=== PATIENT | male | born 1950 | race African-American/Black ===

== ENCOUNTER 2021-10-21 10:10 | Inpatient (IN) | payer MEDICARE, OTHER ==
[~2021-10-21] VITALS: Ht 188 cm; Wt 106.1 kg
[2021-10-21 11:47] LABS: HEMATOCRIT. 37.8 % (42.0-52.0); HEMOGLOBIN. 12.3 g/dL (14.0-18.0); MEAN CORPUSCULAR VOLUME 73.6 fL (80.0-94.0); MEAN PLATELET VOLUME 7.7 fl (7.4-10.4); PLATELET 269 x1000/uL (130-400); RED BLOOD CELL COUNT 5.14 mill/uL (4.7-6.1); RED CELL DISTRIBUTION WIDTH 17.6 % (11.6-14.6)
[2021-10-21 12:02] LABS: CHLORIDE 100 mEq/L (98-107)
[2021-10-21 13:13] LABS: PLATELET ESTIMATE NORMAL
[2021-10-21] MEDS ORDERED: VANCOMYCIN 1G PREMIX 200 ML IV SCH (15:30)
[2021-10-21] MEDS ORDERED: PIPERACILLIN/TAZOBACTAM 3.375GM/50ML PREMIX IV ONE (15:30)
[2021-10-21] MEDS ORDERED: PIPERACILLIN/TAZ 3.375G PREMIX 50 ML IV NR (15:46)
[2021-10-21] MEDS ORDERED: [UNRECOGNIZED DRUG - REMARK] XX SCH (16:00)
[2021-10-21] MEDS ORDERED: VANCOMYCIN 1GM PMX (XELLIA) 200 ML IV NR (16:01)
[2021-10-21] MEDS ORDERED: DEXTROSE 50% WATER 50ML SYRINGE IV PRN (17:15)
[2021-10-21] MEDS ORDERED: MAGNESIUM/ALUMINUM HYDROXIDE/SIMETHICONE 30ML UDC PO PRN (17:15)
[2021-10-21] MEDS ORDERED: ZOLPIDEM TARTRATE 5MG TABLET PO PRN (17:15)
[2021-10-21] MEDS ORDERED: ACETAMINOPHEN 325MG TABLET PO PRN (17:15)
[2021-10-21] MEDS ORDERED: DIPHENHYDRAMINE 50MG/ML VIAL IV PRN (17:15)
[2021-10-21] MEDS ORDERED: CLONIDINE 0.1MG TABLET PO PRN (17:15)
[2021-10-21] MEDS ORDERED: ATORVASTATIN CALCIUM 40MG TABLET PO SCH (21:00)
[2021-10-21] MEDS: SODIUM CHLORIDE 0.9% INJ 3ML FLUSH IVF SCH (22:00)
[2021-10-21] MEDS: BLOOD SUGAR DIAGNOSTIC STRIP TEST SCH (22:12)
[2021-10-21] MEDS: INSULIN LISPRO 100 UNITS/ML SUBCUT SCH (22:13)
[2021-10-21] MEDS: VANCOMYCIN 1GM PMX (XELLIA) 200 ML IV SCH (23:12)
[2021-10-22] MEDS: PIPERACILLIN/TAZOBACTAM 3.375G in DEXT 5% WATER 50ML IV SCH ×4 (01:04→22:48)
[2021-10-22] MEDS: ATORVASTATIN CALCIUM 40MG TABLET PO SCH ×2 (02:10→22:44)
[2021-10-22] MEDS ORDERED: GLIMEPIRIDE 2MG TABLET PO SCH (06:30)
[2021-10-22 06:35] LABS: HEMOGLOBIN. 11.7 g/dL (14.0-18.0); MEAN CORPUSCULAR HEMOGLOBIN 24.5 pg (28.0-32.0); MEAN CORPUSCULAR VOLUME 73.2 fL (80.0-94.0); MEAN PLATELET VOLUME 7.2 fl (7.4-10.4); PLATELET 248 x1000/uL (130-400); RED BLOOD CELL COUNT 4.78 mill/uL (4.7-6.1); RED CELL DISTRIBUTION WIDTH 17.1 % (11.6-14.6)
[2021-10-22 06:41] LABS: CHLORIDE 101 mEq/L (98-107)
[2021-10-22] MEDS: SODIUM CHLORIDE 0.9% INJ 3ML FLUSH IVF SCH ×3 (06:46→22:49)
[2021-10-22 06:53] LABS: CREATINE KINASE 171 IU/L (39-308)
[2021-10-22 07:23] LABS: HEPATITIS B SURFACE ANTIGEN NEGATIVE
[2021-10-22 08:31] LABS: PLATELET ESTIMATE NORMAL
[2021-10-22] MEDS ORDERED: SODIUM CHLORIDE 0.45% 1,000 ML IV ONE (08:45)
[2021-10-22] MEDS ORDERED: SACU1TAB4 MT (10:09)
[2021-10-22] MEDS ORDERED: IVAB7.5T PO (10:09)
[2021-10-22] MEDS ORDERED: AMA1 PO (10:09)
[2021-10-22] MEDS ORDERED: ATOR-2 MT (10:09)
[2021-10-22] MEDS ORDERED: FERR325T6 MT (10:09)
[2021-10-22] MEDS ORDERED: ASPI-1497 PO (10:09)
[2021-10-22 10:10] VITALS: BP 128/74
[2021-10-22] MEDS ORDERED: EMPA10TA PO (10:10)
[2021-10-22 10:27] VITALS: BP 128/74
[2021-10-22 12:00] VITALS: BP 126/70
[2021-10-22] MEDS: BLOOD SUGAR DIAGNOSTIC STRIP TEST SCH ×3 (12:20→21:00)
[2021-10-22] MEDS: INSULIN LISPRO 100 UNITS/ML SUBCUT SCH ×3 (12:50→22:47)
[2021-10-22] MEDS ORDERED: LIDOCAINE HCL 1% 20ML VIAL (Pyxis) INJ ONE ×2 (13:03→13:06)
[2021-10-22] MEDS ORDERED: PROPOFOL 200MG/20ML VIAL IV ONE ×2 (13:04→13:59)
[2021-10-22] MEDS ORDERED: FENTANYL CITRATE/PF 50MCG/ML 2ML VIAL ONE (13:04)
[2021-10-22] MEDS ORDERED: BUPIVACAINE HCL/PF 0.5% (5MG/ML) 30ML ONE (13:06)
[2021-10-22] MEDS ORDERED: BACITRACIN 15GM TUBE TOP ONE (13:06)
[2021-10-22] MEDS ORDERED: POLYMYXIN B SULFATE 500000 UNITS/VIAL ONE (13:06)
[2021-10-22] MEDS ORDERED: VANCOMYCIN HCL 1 GM/VIAL ONE (13:13)
[2021-10-22] MEDS ORDERED: MIDAZOLAM HCL 2 MG/2 ML VIAL ONE (13:33)
[2021-10-22] MEDS: VANCOMYCIN 1GM PMX (XELLIA) 200 ML IV SCH ×2 (16:26→22:48)
[2021-10-22 16:30] VITALS: BP 132/75
[2021-10-22] MEDS ORDERED: TETANUS AND DIPHTHERIA TOX/PF 0.5ML SYR (ADULT) IM ONE (18:00)
[2021-10-22] MEDS ORDERED: LOSARTAN POTASSIUM 25 MG TABLET PO SCH (19:45)
[2021-10-22 20:00] VITALS: BP 143/78
[2021-10-22] MEDS ORDERED: CARVEDILOL 6.25 MG TABLET PO SCH (21:00)
[2021-10-22] MEDS ORDERED: NON FORMULARY PATIENT HOME MED PO SCH (23:45)
[2021-10-23] VITALS: BP 92/50
[2021-10-23] MEDS ORDERED: *PATIENT'S OWN MEDICATION STORAGE XX SCH (01:45)
[2021-10-23 04:00] VITALS: BP 97/47
[2021-10-23] MEDS: PIPERACILLIN/TAZOBACTAM 3.375G in DEXT 5% WATER 50ML IV SCH ×3 (06:34→21:42)
[2021-10-23] MEDS: SODIUM CHLORIDE 0.9% INJ 3ML FLUSH IVF SCH ×3 (06:34→21:42)
[2021-10-23] MEDS: BLOOD SUGAR DIAGNOSTIC STRIP TEST SCH ×4 (06:44→21:40)
[2021-10-23 07:41] LABS: HEMATOCRIT. 33.8 % (42.0-52.0); HEMOGLOBIN. 11.2 g/dL (14.0-18.0); MEAN CORPUSCULAR HEMOGLOBIN 24.2 pg (28.0-32.0); MEAN CORPUSCULAR VOLUME 72.9 fL (80.0-94.0); MEAN PLATELET VOLUME 7.7 fl (7.4-10.4); PLATELET 283 x1000/uL (130-400); RED BLOOD CELL COUNT 4.63 mill/uL (4.7-6.1); RED CELL DISTRIBUTION WIDTH 17.2 % (11.6-14.6)
[2021-10-23] MEDS: INSULIN LISPRO 100 UNITS/ML SUBCUT SCH ×4 (07:50→21:45)
[2021-10-23 08:00] VITALS: BP 112/57
[2021-10-23 08:13] LABS: CHLORIDE 103 mEq/L (98-107)
[2021-10-23] MEDS ORDERED: MISCELLANEOUS MEDICATION 1 EA PO SCH ×2 (09:00)
[2021-10-23] MEDS ORDERED: GLIMEPIRIDE 1MG TABLET PO SCH (09:00)
[2021-10-23] MEDS: GLIMEPIRIDE 2MG TABLET PO SCH (09:29)
[2021-10-23] MEDS: FERROUS SULFATE 325MG TABLET PO SCH (09:29)
[2021-10-23] MEDS: VANCOMYCIN 1GM PMX (XELLIA) 200 ML IV SCH ×2 (09:30→21:42)
[2021-10-23] MEDS: SILVER SULFADIAZINE 1% CREAM 25GM TOP SCH (09:30)
[2021-10-23] MEDS: CORLANOR 7.5 MG PO SCH (09:31)
[2021-10-23] MEDS: JARDIANCE 10MG TABLET PO SCH (09:32)
[2021-10-23] MEDS: ENTRESTO PO SCH ×2 (09:32→17:22)
[2021-10-23 12:00] VITALS: BP 129/68
[2021-10-23 13:09] LABS: PLATELET ESTIMATE NORMAL
[2021-10-23 16:00] VITALS: BP 134/68
[2021-10-23] MEDS: ASPIRIN 81MG EC TABLET PO SCH (17:21)
[2021-10-23] MEDS: ACETAMINOPHEN 325MG TABLET PO PRN (18:32)
[2021-10-23 20:00] VITALS: BP 119/57
[2021-10-23] MEDS: ATORVASTATIN CALCIUM 40MG TABLET PO SCH (21:41)
[2021-10-24] VITALS: BP 108/59
[2021-10-24 04:00] VITALS: BP 111/54
[2021-10-24] MEDS: SODIUM CHLORIDE 0.9% INJ 3ML FLUSH IVF SCH ×3 (06:21→20:39)
[2021-10-24] MEDS: PIPERACILLIN/TAZOBACTAM 3.375G in DEXT 5% WATER 50ML IV SCH ×2 (06:21→14:01)
[2021-10-24] MEDS: GLIMEPIRIDE 2MG TABLET PO SCH (06:21)
[2021-10-24] MEDS: BLOOD SUGAR DIAGNOSTIC STRIP TEST SCH ×4 (06:22→20:07)
[2021-10-24 06:59] LABS: BASOPHILS % 0.3 % (0.0-2.0); EOSINOPHILS % 2.4 % (0.0-5.0); HEMATOCRIT. 32.7 % (42.0-52.0); LYMPHOCYTES % 10.7 % (20.0-50.0); MEAN CORPUSCULAR HEMOGLOBIN 24.5 pg (28.0-32.0); MEAN PLATELET VOLUME 7.4 fl (7.4-10.4); MONOCYTES % 10.4 % (2.0-8.0); NEUTROPHILS % 76.2 % (40.0-76.0); PLATELET 298 x1000/uL (130-400); RED BLOOD CELL COUNT 4.49 mill/uL (4.7-6.1); RED CELL DISTRIBUTION WIDTH 17.4 % (11.6-14.6)
[2021-10-24 07:19] LABS: CHLORIDE 105 mEq/L (98-107)
[2021-10-24] MEDS: INSULIN LISPRO 100 UNITS/ML SUBCUT SCH ×4 (07:48→20:38)
[2021-10-24 08:00] VITALS: BP 122/64
[2021-10-24] MEDS: ASPIRIN 81MG EC TABLET PO SCH (08:14)
[2021-10-24] MEDS: FERROUS SULFATE 325MG TABLET PO SCH (08:14)
[2021-10-24] MEDS: ENTRESTO PO SCH ×2 (08:15→17:00)
[2021-10-24] MEDS: VANCOMYCIN 1GM PMX (XELLIA) 200 ML IV SCH (08:15)
[2021-10-24] MEDS: SILVER SULFADIAZINE 1% CREAM 25GM TOP SCH (08:16)
[2021-10-24] MEDS: CORLANOR 7.5 MG PO SCH (08:16)
[2021-10-24] MEDS: JARDIANCE 10MG TABLET PO SCH (08:16)
[2021-10-24] MEDS ORDERED: LIDOCAINE HCL 1% 10 MG/ML 10ML VIAL ONE (10:16)
[2021-10-24 12:00] VITALS: BP 120/60
[2021-10-24 16:00] VITALS: BP 138/73
[2021-10-24] MEDS: CEFAZOLIN 2,000 MG in DEXT 5% WATER 100 ML IV SCH ×2 (19:17→20:39)
[2021-10-24 20:00] VITALS: BP 127/73
[2021-10-24] MEDS: ATORVASTATIN CALCIUM 40MG TABLET PO SCH (20:38)
[2021-10-25] VITALS: BP 128/63
[2021-10-25 04:00] VITALS: BP 137/78
[2021-10-25] MEDS: GLIMEPIRIDE 2MG TABLET PO SCH (06:02)
[2021-10-25] MEDS: SODIUM CHLORIDE 0.9% INJ 3ML FLUSH IVF SCH ×3 (06:03→21:41)
[2021-10-25] MEDS: CEFAZOLIN 2,000 MG in DEXT 5% WATER 100 ML IV SCH ×3 (06:03→21:42)
[2021-10-25] MEDS: BLOOD SUGAR DIAGNOSTIC STRIP TEST SCH ×3 (06:21→21:43)
[2021-10-25] MEDS: INSULIN LISPRO 100 UNITS/ML SUBCUT SCH ×3 (07:25→21:45)
[2021-10-25 08:00] VITALS: BP 112/64
[2021-10-25] MEDS: ASPIRIN 81MG EC TABLET PO SCH ×2 (08:53→08:59)
[2021-10-25] MEDS: ENTRESTO PO SCH (08:53)
[2021-10-25] MEDS: FERROUS SULFATE 325MG TABLET PO SCH (08:53)
[2021-10-25] MEDS: CORLANOR 7.5 MG PO SCH (08:54)
[2021-10-25] MEDS: JARDIANCE 10MG TABLET PO SCH ×2 (08:55→18:43)
[2021-10-25] MEDS ORDERED: LIDOCAINE HCL 1% 20ML VIAL (Pyxis) INJ ONE ×2 (11:26→16:06)
[2021-10-25] MEDS ORDERED: BACITRACIN 15GM TUBE TOP ONE ×2 (11:28→16:10)
[2021-10-25] MEDS ORDERED: DEXAMETHASONE 4MG/ML 1ML VIAL ONE ×2 (11:28→15:58)
[2021-10-25] MEDS ORDERED: POLYMYXIN B SULFATE 500000 UNITS/VIAL ONE ×2 (11:28→14:50)
[2021-10-25] MEDS ORDERED: GENTAMICIN SULF 40MG/ML 2ML VIAL ONE (11:28)
[2021-10-25] MEDS ORDERED: BUPIVACAINE HCL/PF 0.5% (5MG/ML) 10ML ONE (11:29)
[2021-10-25 12:00] VITALS: BP 147/75
[2021-10-25] MEDS: ACETAMINOPHEN 325MG TABLET PO PRN (12:38)
[2021-10-25] MEDS ORDERED: MIDAZOLAM HCL 2 MG/2 ML VIAL ONE (15:37)
[2021-10-25] MEDS ORDERED: PROPOFOL 200MG/20ML VIAL IV ONE (15:38)
[2021-10-25] MEDS ORDERED: FENTANYL CITRATE/PF 50MCG/ML 2ML VIAL ONE (15:57)
[2021-10-25] MEDS ORDERED: ONDANSETRON HCL 4MG/2ML INJ ONE (15:58)
[2021-10-25] MEDS ORDERED: CEFAZOLIN SODIUM 1000MG/VIAL ONE ×2 (15:58→16:06)
[2021-10-25] MEDS ORDERED: LIDOCAINE HCL 2% JELLY 5ML ONE (16:06)
[2021-10-25] MEDS ORDERED: FENTANYL CITRATE/PF 50MCG/ML 2ML VIAL IV PRN (16:30)
[2021-10-25 18:36] VITALS: BP 140/82
[2021-10-25] MEDS: SILVER SULFADIAZINE 1% CREAM 25GM TOP SCH (18:43)
[2021-10-25 20:00] VITALS: BP 152/84
[2021-10-25] MEDS: ATORVASTATIN CALCIUM 40MG TABLET PO SCH (21:41)
[2021-10-26 00:01] VITALS: BP 137/76
[2021-10-26 04:00] VITALS: BP 159/89
[2021-10-26] MEDS: ONDANSETRON HCL 4MG/2ML INJ IV PRN ×2 (04:44→13:04)
[2021-10-26] MEDS: SODIUM CHLORIDE 0.9% INJ 3ML FLUSH IVF SCH ×3 (05:32→21:31)
[2021-10-26] MEDS: CEFAZOLIN 2,000 MG in DEXT 5% WATER 100 ML IV SCH ×3 (05:32→21:30)
[2021-10-26] MEDS: BLOOD SUGAR DIAGNOSTIC STRIP TEST SCH ×4 (06:10→21:30)
[2021-10-26] MEDS: INSULIN LISPRO 100 UNITS/ML SUBCUT SCH ×4 (06:28→21:32)
[2021-10-26 08:00] VITALS: BP 132/79
[2021-10-26 08:12] LABS: BASOPHILS % 0.1 % (0.0-2.0); HEMATOCRIT. 33.8 % (42.0-52.0); HEMOGLOBIN. 11.3 g/dL (14.0-18.0); LYMPHOCYTES % 10.3 % (20.0-50.0); MEAN CORPUSCULAR HEMOGLOBIN 24.2 pg (28.0-32.0); MEAN CORPUSCULAR VOLUME 72.3 fL (80.0-94.0); MEAN PLATELET VOLUME 7.6 fl (7.4-10.4); MONOCYTES % 6.3 % (2.0-8.0); NEUTROPHILS % 83.3 % (40.0-76.0); PLATELET 328 x1000/uL (130-400); RED BLOOD CELL COUNT 4.67 mill/uL (4.7-6.1); RED CELL DISTRIBUTION WIDTH 17.3 % (11.6-14.6)
[2021-10-26 08:40] LABS: CHLORIDE 102 mEq/L (98-107)
[2021-10-26] MEDS: ASPIRIN 81MG EC TABLET PO SCH (08:51)
[2021-10-26] MEDS: FERROUS SULFATE 325MG TABLET PO SCH (08:51)
[2021-10-26] MEDS: GLIMEPIRIDE 2MG TABLET PO SCH (08:51)
[2021-10-26] MEDS: CORLANOR 7.5 MG PO SCH (08:52)
[2021-10-26] MEDS: ENTRESTO PO SCH ×3 (08:52→18:15)
[2021-10-26] MEDS: SILVER SULFADIAZINE 1% CREAM 25GM TOP SCH (08:52)
[2021-10-26] MEDS ORDERED: IOHEXOL-350 100 ML BOTTLE ONE (10:24)
[2021-10-26 11:47] VITALS: BP 154/89
[2021-10-26] MEDS: ACETAMINOPHEN 325MG TABLET PO PRN (13:04)
[2021-10-26 16:00] VITALS: BP 129/76
[2021-10-26] MEDS: METOCLOPRAMIDE HCL 10MG/2ML VIAL IV SCH ×2 (19:58→23:31)
[2021-10-26 20:00] VITALS: BP 127/78
[2021-10-26] MEDS ORDERED: FAMOTIDINE 20MG/2ML VIAL IV SCH (21:00)
[2021-10-26] MEDS: ATORVASTATIN CALCIUM 40MG TABLET PO SCH (21:31)
[2021-10-27] VITALS: BP 141/86
[2021-10-27 03:43] VITALS: BP 125/76
[2021-10-27] MEDS: CEFAZOLIN 2,000 MG in DEXT 5% WATER 100 ML IV SCH ×3 (05:29→21:49)
[2021-10-27] MEDS: SODIUM CHLORIDE 0.9% INJ 3ML FLUSH IVF SCH ×3 (05:30→21:49)
[2021-10-27] MEDS: METOCLOPRAMIDE HCL 10MG/2ML VIAL IV SCH ×4 (05:30→21:49)
[2021-10-27] MEDS: BLOOD SUGAR DIAGNOSTIC STRIP TEST SCH ×4 (06:27→20:53)
[2021-10-27] MEDS: GLIMEPIRIDE 2MG TABLET PO SCH (06:27)
[2021-10-27 08:00] VITALS: BP 148/85
[2021-10-27] MEDS: ASPIRIN 81MG EC TABLET PO SCH (08:16)
[2021-10-27] MEDS: FERROUS SULFATE 325MG TABLET PO SCH (08:16)
[2021-10-27] MEDS: ENTRESTO PO SCH ×2 (08:17→16:33)
[2021-10-27] MEDS: JARDIANCE 10MG TABLET PO SCH (08:17)
[2021-10-27] MEDS: SILVER SULFADIAZINE 1% CREAM 25GM TOP SCH (08:17)
[2021-10-27] MEDS: CORLANOR 7.5 MG PO SCH (08:17)
[2021-10-27] MEDS: INSULIN LISPRO 100 UNITS/ML SUBCUT SCH ×4 (08:56→23:33)
[2021-10-27 12:00] VITALS: BP 146/83
[2021-10-27] MEDS: ONDANSETRON HCL 4MG/2ML INJ IV PRN ×2 (12:48→16:32)
[2021-10-27 16:00] VITALS: BP 172/96
[2021-10-27 20:00] VITALS: BP 137/80
[2021-10-27] MEDS: FAMOTIDINE 20MG TABLET PO SCH (21:48)
[2021-10-27] MEDS: ATORVASTATIN CALCIUM 40MG TABLET PO SCH (21:48)
[2021-10-28] VITALS: BP 132/81
[2021-10-28 04:00] VITALS: BP 130/78
[2021-10-28] MEDS: CEFAZOLIN 2,000 MG in DEXT 5% WATER 100 ML IV SCH ×3 (06:30→21:37)
[2021-10-28] MEDS: METOCLOPRAMIDE HCL 10MG/2ML VIAL IV SCH ×4 (06:30→21:37)
[2021-10-28] MEDS: SODIUM CHLORIDE 0.9% INJ 3ML FLUSH IVF SCH ×3 (06:31→21:53)
[2021-10-28] MEDS: GLIMEPIRIDE 2MG TABLET PO SCH (06:31)
[2021-10-28] MEDS: BLOOD SUGAR DIAGNOSTIC STRIP TEST SCH ×4 (06:31→21:08)
[2021-10-28 07:58] VITALS: BP 141/93
[2021-10-28] MEDS: ENTRESTO PO SCH ×2 (09:20→17:08)
[2021-10-28] MEDS: CORLANOR 7.5 MG PO SCH (09:20)
[2021-10-28] MEDS: FERROUS SULFATE 325MG TABLET PO SCH (09:21)
[2021-10-28] MEDS: ASPIRIN 81MG EC TABLET PO SCH (09:21)
[2021-10-28] MEDS: SILVER SULFADIAZINE 1% CREAM 25GM TOP SCH (09:22)
[2021-10-28] MEDS: INSULIN LISPRO 100 UNITS/ML SUBCUT SCH ×4 (09:23→21:53)
[2021-10-28] MEDS: JARDIANCE 10MG TABLET PO SCH (09:25)
[2021-10-28 12:30] VITALS: BP 141/79
[2021-10-28] MEDS: METOPROLOL TARTRATE 25MG TABLET PO SCH ×2 (12:37→21:37)
[2021-10-28 16:17] VITALS: BP 130/75
[2021-10-28 20:00] VITALS: BP 135/71
[2021-10-28] MEDS: FAMOTIDINE 20MG TABLET PO SCH (21:37)
[2021-10-28] MEDS: ATORVASTATIN CALCIUM 40MG TABLET PO SCH (21:37)
[2021-10-29] VITALS: BP 108/57
[2021-10-29 04:00] VITALS: BP 133/75
[2021-10-29] MEDS: SODIUM CHLORIDE 0.9% INJ 3ML FLUSH IVF SCH ×3 (06:34→22:01)
[2021-10-29] MEDS: METOCLOPRAMIDE HCL 10MG/2ML VIAL IV SCH ×4 (06:34→22:20)
[2021-10-29] MEDS: GLIMEPIRIDE 2MG TABLET PO SCH (06:34)
[2021-10-29] MEDS: BLOOD SUGAR DIAGNOSTIC STRIP TEST SCH ×4 (06:34→20:59)
[2021-10-29] MEDS: CEFAZOLIN 2,000 MG in DEXT 5% WATER 100 ML IV SCH ×3 (06:34→22:01)
[2021-10-29 07:43] VITALS: BP 138/81
[2021-10-29] MEDS: INSULIN LISPRO 100 UNITS/ML SUBCUT SCH ×4 (08:49→22:20)
[2021-10-29] MEDS: FERROUS SULFATE 325MG TABLET PO SCH (08:50)
[2021-10-29] MEDS: ASPIRIN 81MG EC TABLET PO SCH (08:50)
[2021-10-29] MEDS: METOPROLOL TARTRATE 25MG TABLET PO SCH ×2 (08:50→22:02)
[2021-10-29] MEDS: CORLANOR 7.5 MG PO SCH (08:51)
[2021-10-29] MEDS: ENTRESTO PO SCH ×2 (08:51→16:47)
[2021-10-29] MEDS: JARDIANCE 10MG TABLET PO SCH (08:51)
[2021-10-29 09:52] LABS: BASOPHILS % 0.5 % (0.0-2.0); EOSINOPHILS % 4.1 % (0.0-5.0); HEMATOCRIT. 32.6 % (42.0-52.0); HEMOGLOBIN. 10.8 g/dL (14.0-18.0); LYMPHOCYTES % 13.6 % (20.0-50.0); MEAN CORPUSCULAR HEMOGLOBIN 24.1 pg (28.0-32.0); MEAN CORPUSCULAR VOLUME 72.8 fL (80.0-94.0); MONOCYTES % 8.7 % (2.0-8.0); NEUTROPHILS % 73.1 % (40.0-76.0); RED BLOOD CELL COUNT 4.49 mill/uL (4.7-6.1)
[2021-10-29 09:57] LABS: CHLORIDE 109 mEq/L (98-107)
[2021-10-29 10:21] LABS: PLATELET 169 x1000/uL (130-400)
[2021-10-29 12:00] VITALS: BP 146/74
[2021-10-29] MEDS: SILVER SULFADIAZINE 1% CREAM 25GM TOP SCH (12:25)
[2021-10-29] MEDS ORDERED: MAGNESIUM 1 G PREMIX 100 ML IV NR (15:00)
[2021-10-29 16:00] VITALS: BP 115/59
[2021-10-29 20:00] VITALS: BP 126/74
[2021-10-29] MEDS: FAMOTIDINE 20MG TABLET PO SCH (22:01)
[2021-10-29] MEDS: ATORVASTATIN CALCIUM 40MG TABLET PO SCH (22:02)
[2021-10-30] VITALS: BP 120/68
[2021-10-30 04:00] VITALS: BP 129/71
[2021-10-30] MEDS: SODIUM CHLORIDE 0.9% INJ 3ML FLUSH IVF SCH ×2 (06:00→14:50)
[2021-10-30] MEDS: CEFAZOLIN 2,000 MG in DEXT 5% WATER 100 ML IV SCH ×2 (06:00→14:50)
[2021-10-30] MEDS: METOCLOPRAMIDE HCL 10MG/2ML VIAL IV SCH ×2 (06:00→12:28)
[2021-10-30] MEDS: BLOOD SUGAR DIAGNOSTIC STRIP TEST SCH ×2 (07:18→12:29)
[2021-10-30 07:44] VITALS: BP 126/79
[2021-10-30 07:57] LABS: HEMATOCRIT. 30.7 % (42.0-52.0); HEMOGLOBIN. 10.2 g/dL (14.0-18.0); MEAN CORPUSCULAR HEMOGLOBIN 24.1 pg (28.0-32.0); MEAN CORPUSCULAR VOLUME 72.8 fL (80.0-94.0); RED BLOOD CELL COUNT 4.21 mill/uL (4.7-6.1); RED CELL DISTRIBUTION WIDTH 17.1 % (11.6-14.6)
[2021-10-30 08:02] LABS: CHLORIDE 107 mEq/L (98-107)
[2021-10-30 08:24] LABS: PLATELET 178 x1000/uL (130-400)
[2021-10-30 08:26] LABS: PLATELET ESTIMATE NORMAL
[2021-10-30] MEDS: INSULIN LISPRO 100 UNITS/ML SUBCUT SCH ×2 (08:45→12:43)
[2021-10-30] MEDS: ENTRESTO PO SCH ×2 (08:46→17:00)
[2021-10-30] MEDS: JARDIANCE 10MG TABLET PO SCH (08:46)
[2021-10-30] MEDS: CORLANOR 7.5 MG PO SCH (08:47)
[2021-10-30] MEDS: FERROUS SULFATE 325MG TABLET PO SCH (08:47)
[2021-10-30] MEDS: ASPIRIN 81MG EC TABLET PO SCH (08:48)
[2021-10-30] MEDS: GLIMEPIRIDE 2MG TABLET PO SCH (08:48)
[2021-10-30] MEDS: METOPROLOL TARTRATE 25MG TABLET PO SCH (08:48)
[2021-10-30] MEDS: SILVER SULFADIAZINE 1% CREAM 25GM TOP SCH (11:44)
[2021-10-30 12:00] VITALS: BP 137/83
[2021-10-30 12:12] VITALS: BP 137/83
[2021-10-30 15:57] VITALS: BP 131/74
[2021-10-30] MEDS ORDERED: METOPROLOL TARTRATE 50MG TABLET PO SCH (21:00)
== END 2021-10-30 18:01 | disposition home health service (06) | DRG 853 ==
LOC: ER 11:10 → MICUSO 16:14 → EDBEDREQTM 16:17 → EDBEDREQ 16:17 → 6WST 10-22 09:58
PROVIDERS: ADMIT Internal Medicine; ATTEND Internal Medicine
PROC: 0KBV0ZZ Excision of Right Foot Muscle, Open Approach (ICD-10-PCS; 2021-10-22)
PROC: 02HV33Z Insertion of Infusion Device into Superior Vena Cava, Percutaneous Approach (ICD-10-PCS; principal; 2021-10-24)
PROC: B5181ZA Fluoroscopy of Superior Vena Cava using Low Osmolar Contrast, Guidance (ICD-10-PCS; 2021-10-24)
PROC: B548ZZA Ultrasonography of Superior Vena Cava, Guidance (ICD-10-PCS; 2021-10-24)
PROC: 0QBN0ZZ Excision of Right Metatarsal, Open Approach (ICD-10-PCS; 2021-10-25)
DX: A41.9 Sepsis, unspecified organism (principal); E43 Unspecified severe protein-calorie malnutrition; L02.611 Cutaneous abscess of right foot; L03.116 Cellulitis of left lower limb; L97.329 Non-pressure chronic ulcer of left ankle with unspecified severity; I42.9 Cardiomyopathy, unspecified; M86.8X7 Other osteomyelitis, ankle and foot; E11.40 Type 2 diabetes mellitus with diabetic neuropathy, unspecified; E11.621 Type 2 diabetes mellitus with foot ulcer; I11.0 Hypertensive heart disease with heart failure; Z20.822 Contact with and (suspected) exposure to COVID-19; I25.10 Atherosclerotic heart disease of native coronary artery without angina pectoris; I50.9 Heart failure, unspecified; L97.519 Non-pressure chronic ulcer of other part of right foot with unspecified severity; E11.69 Type 2 diabetes mellitus with other specified complication; Z95.5 Presence of coronary angioplasty implant and graft; Z79.4 Long term (current) use of insulin; Z79.82 Long term (current) use of aspirin; Z95.810 Presence of automatic (implantable) cardiac defibrillator; Z87.891 Personal history of nicotine dependence; I25.2 Old myocardial infarction; B95.61 Methicillin susceptible Staphylococcus aureus infection as the cause of diseases classified elsewhere; Z68.30 Body mass index [BMI] 30.0-30.9, adult
CPT/HCPCS: 36415; 36573; 71045; 73630; 75635; 78315; 80048; 80053; 80061; 80202; 82550; 82962; 83036; 83605; 83735; 85025; 85651; 86140; 86803; 87070; 87075; 87077; 87186; 87340; 87426; 90714; 93005; 93306; 97022; 97116; 97162; 97164; 97530; 99285; A9503; A9556; C1725; C1769; J0690; J1100; J1580; J1815; J2250; J2405; J2543; J2704; J2765; J3010; J3370; J3475; J3490; J7060; Q9967